=== PATIENT | male | born 1965 | race Asian ===

== ENCOUNTER 2020-03-26 11:44 | Day surgery (SDC) | payer MEDICAID ==
[2020-03-19 13:56] LABS: CALCIUM 9.1 mg/dL (8.5-10.1); CARBON DIOXIDE 32.9 mmol/L (21-32); CHLORIDE SERUM 104 mmol/L (98-107); CREATININE SERUM 0.9 mg/dL (0.7-1.3); GFR1 > 60 mL/min; GLUCOSE SERUM 95 mg/dL (74-106); POTASSIUM SERUM 4.1 mmol/L (3.5-5.1); SODIUM SERUM 140 mmol/L (136-145)
[2020-03-19 13:59] LABS: BASOPHIL % 0.4 % (0.2-1.5); PLATELET COUNT 312 x10^3mcL (152-348); RED CELL DISTRIBUTION WIDTH 12.6 % (12.1-16.2)
[2020-03-19 18:31] LABS: rbc morphology (normal/abnorm) NORMAL (NORMAL)
[2020-03-19 20:53] LABS: UA SPECIFIC GRAVITY 1.025 (1.005-1.035); microscopic required? YES; urine erythrocyte 2+ (NEGATIVE)
[~2020-03-26] VITALS: Ht 165.1 cm; Wt 104.3 kg
[2020-03-26 12:58] VITALS: BP 134/86
[2020-03-26 18:15] VITALS: BP 124/76
== END 2020-03-26 17:30 | disposition home or self-care (01) ==
LOC: DS 11:44 → OR 14:00 → DS 14:00
PROVIDERS: ATTEND Urology
DX: N30.20 Other chronic cystitis without hematuria (principal); N32.1 Vesicointestinal fistula; I10 Essential (primary) hypertension; I48.91 Unspecified atrial fibrillation; Z20.822 Contact with and (suspected) exposure to COVID-19; Z79.899 Other long term (current) drug therapy
CPT/HCPCS: 51610; J0131; J0696; J2001; J2250; J2405; J3010; Q9967; U0003

== ENCOUNTER 2020-03-29 00:21 | Emergency (ER) | payer MEDICAID ==
[~2020-03-29] VITALS: Ht 165.1 cm; Wt 99.8 kg
[2020-03-29 03:20] VITALS: BP 136/79
== END 2020-03-29 03:20 | disposition home or self-care (01) ==
LOC: ED 00:21
DX: T83.098A Other mechanical complication of other urinary catheter, initial encounter (principal); I10 Essential (primary) hypertension

== ENCOUNTER 2020-03-30 23:34 | Emergency (ER) | payer MEDICAID ==
[~2020-03-30] VITALS: Ht 165.1 cm; Wt 94.5 kg
[2020-03-31 03:36] LABS: microscopic required? YES; urine erythrocyte 3+ (NEGATIVE)
[2020-03-31 03:37] LABS: BASOPHIL % 0.5 % (0.2-1.5); PLATELET COUNT 300 x10^3mcL (152-348); RED CELL DISTRIBUTION WIDTH 12.4 % (12.1-16.2)
[2020-03-31 03:42] LABS: rbc morphology (normal/abnorm) NORMAL (NORMAL)
[2020-03-31 03:53] LABS: CALCIUM 9.1 mg/dL (8.5-10.1); CARBON DIOXIDE 28.7 mmol/L (21-32); CHLORIDE SERUM 104 mmol/L (98-107); CREATININE SERUM 0.9 mg/dL (0.7-1.3); GFR1 > 60 mL/min; GLUCOSE SERUM 90 mg/dL (74-106); POTASSIUM SERUM 3.9 mmol/L (3.5-5.1); SODIUM SERUM 140 mmol/L (136-145)
[2020-03-31 03:58] LABS: ALBUMIN 3.5 g/dL (3.4-5.0); ALKALINE PHOSPHATASE 45 U/L (46-116); ALT/SGPT 32 U/L (16-63); AST/SGOT 32 U/L (15-37); BILIRUBIN TOTAL 1.51 mg/dL (0.20-1.00); TOTAL PROTEIN, SERUM 7.7 g/dL (6.4-8.2)
[2020-03-31 06:00] VITALS: BP 130/80
== END 2020-03-31 07:26 | disposition home or self-care (01) ==
LOC: ED 23:34
PROVIDERS: Emergency Medicine
DX: T83.098A Other mechanical complication of other urinary catheter, initial encounter (principal); N32.1 Vesicointestinal fistula
CPT/HCPCS: J0696; J1885; J3490; J7060